=== PATIENT | female | born 1995 | race Caucasian/White ===

== ENCOUNTER 2021-07-15 16:00 | Emergency (ER) | payer OTHER ==
[2021-07-15 17:37] LABS: BILIRUBIN 1+ mg/dL (NEGATIVE); BLOOD 3+ Ery/uL (NEGATIVE); CLARITY CLEAR (CLEAR); COLOR YELLOW (YELLOW); GLUCOSE (U) NORMAL (NORMAL); LEUKOCYTES TRACE Leu/uL (NEGATIVE); NITRITE NEGATIVE (NEGATIVE); PROTEIN 2+ mg/dL (NEGATIVE)
[2021-07-15 18:01] LABS: BASOPHIL 0.2 % (0-2); EOSINOPHIL 0.2 % (0-5); HGB 12.7 g/dl (12.5-16.0); LYMPHOCYTE 12.4 % (15-48); MCHC 32.6 g/dL (32.0-36.0); MONOCYTE 6.8 % (0-12); MPV 11.6 fL (6.0-9.5); NEUTROPHIL 80.1 % (41-80); NRBC 0; PLT 258 K/uL (150-400); RBC 4.24 M/uL (4.20-5.40); RDW 13.4 % (11.5-14.0); WBC 12.9 K/uL (4.0-10.5)
[2021-07-15 18:07] LABS: AMORPHOUS URATES CRYSTALS MODERATE; BACTERIA 2+; MUCOUS MODERATE
[2021-07-15 18:19] LABS: ALBUMIN 3.2 g/dL (3.4-5.0); BILIRUBIN - TOTAL 0.4 mg/dL (0.2-1.0); BUN/CREAT RATIO (CALC) 17.5 RATIO; CREATININE 0.57 mg/dL (0.51-0.95); GLOBULIN (CALCULATION) 5.5 g/dL; POTASSIUM 3.6 mmol/L (3.5-5.1); TOTAL PROTEIN 8.7 g/dL (6.4-8.2)
[2021-07-15 18:28] LABS: LACTIC ACID 1.1 mmol/L (0.4-1.9)
[2021-07-15] MEDS ORDERED: BACTRIM DS TAB1 EACH PO (20:09)
[2021-07-15] MEDS ORDERED: ZOFRAN4 M1 PO (20:09)
== END 2021-07-15 20:23 | disposition home or self-care (01) ==
LOC: FER 16:00 → EDBD 16:00 → FER 20:23
PROVIDERS: Physician Assistant
DX: N39.0 Urinary tract infection, site not specified (principal); Z20.822 Contact with and (suspected) exposure to COVID-19
CPT/HCPCS: 36415; 80053; 81001; 83605; 83690; 85025; J0696; J1885; J2405; J7030; U0002